=== PATIENT | male | born 1945 | race Caucasian/White ===

== ENCOUNTER 2021-11-01 11:30 | Inpatient (IN) | payer OTHER, MEDICARE ==
[~2021-11-01] VITALS: Ht 182.9 cm; Wt 140.7 kg
[2021-11-01 12:56] LABS: HEMOGLOBIN 14.6 gm/dl (14.0-17.5); RED BLOOD COUNT 5.09 M/UL (4.20-5.50)
[2021-11-01] MEDS ORDERED: ATORVASTATIN CA20 MG PO (14:35)
[2021-11-01] MEDS ORDERED: AMMONIUM LACTA225 GM TOP (14:35)
[2021-11-01] MEDS ORDERED: GABAPENTIN600 MG PO (14:36)
[2021-11-01] MEDS ORDERED: FLONASE ALLER15.8 ML (14:36)
[2021-11-01] MEDS ORDERED: FUROSEMIDE20 MG PO (14:36)
[2021-11-01] MEDS ORDERED: TRIAMCINOLONE A80 GM TOP (14:37)
[2021-11-01] MEDS ORDERED: VITAMIN D325 MC6 PO (14:38)
[2021-11-01] MEDS ORDERED: BETA SITOSTEROL PO (14:38)
[2021-11-02 02:12] LABS: HEMOGLOBIN 13.8 gm/dl (14.0-17.5); RED BLOOD COUNT 4.91 M/UL (4.20-5.50); WHITE BLOOD COUNT 11.5 K/UL (4.5-11.0)
[2021-11-03 03:49] LABS: HEMOGLOBIN 13.7 gm/dl (14.0-17.5); RED BLOOD COUNT 4.85 M/UL (4.20-5.50); WHITE BLOOD COUNT 12.2 K/UL (4.5-11.0)
[2021-11-03 15:39] LABS: BUN/CREATININE RATIO 16 (0-10)
[2021-11-04 02:27] LABS: HEMOGLOBIN 13.3 gm/dl (14.0-17.5); RED BLOOD COUNT 4.72 M/UL (4.20-5.50); WHITE BLOOD COUNT 11.4 K/UL (4.5-11.0)
[2021-11-05 04:54] LABS: HEMOGLOBIN 13.8 gm/dl (14.0-17.5); RED BLOOD COUNT 4.87 M/UL (4.20-5.50)
[2021-11-05 04:55] LABS: WHITE BLOOD COUNT 7.2 K/UL (4.5-11.0)
[2021-11-05 05:10] LABS: BUN/CREATININE RATIO 19 (0-10)
[2021-11-06 01:50] LABS: RED BLOOD COUNT 4.65 M/UL (4.20-5.50)
[2021-11-06 01:52] LABS: WHITE BLOOD COUNT 9.2 K/UL (4.5-11.0)
[2021-11-06 02:32] LABS: BUN/CREATININE RATIO 22 (0-10)
[2021-11-07 05:17] LABS: HEMOGLOBIN 12.8 gm/dl (14.0-17.5); RED BLOOD COUNT 4.52 M/UL (4.20-5.50); WHITE BLOOD COUNT 8.5 K/UL (4.5-11.0)
[2021-11-07 06:02] LABS: BUN/CREATININE RATIO 19 (0-10)
[2021-11-08 03:55] LABS: HEMOGLOBIN 12.7 gm/dl (14.0-17.5); RED BLOOD COUNT 4.51 M/UL (4.20-5.50); WHITE BLOOD COUNT 8.5 K/UL (4.5-11.0)
[2021-11-08 04:19] LABS: BUN/CREATININE RATIO 22 (0-10)
[2021-11-09 04:45] LABS: HEMOGLOBIN 12.9 gm/dl (14.0-17.5); RED BLOOD COUNT 4.73 M/UL (4.20-5.50)
[2021-11-09 05:08] LABS: BUN/CREATININE RATIO 24 (0-10)
[2021-11-10 02:36] LABS: HEMOGLOBIN 12.9 gm/dl (14.0-17.5); RED BLOOD COUNT 4.57 M/UL (4.20-5.50)
[2021-11-10 02:40] LABS: WHITE BLOOD COUNT 9.3 K/UL (4.5-11.0)
[2021-11-10 03:03] LABS: BUN/CREATININE RATIO 26 (0-10)
[2021-11-11 02:27] LABS: HEMOGLOBIN 13.3 gm/dl (14.0-17.5); RED BLOOD COUNT 4.72 M/UL (4.20-5.50); WHITE BLOOD COUNT 8.9 K/UL (4.5-11.0)
[2021-11-11 03:23] LABS: BUN/CREATININE RATIO 25 (0-10)
[2021-11-12 03:04] LABS: HEMOGLOBIN 13.1 gm/dl (14.0-17.5); RED BLOOD COUNT 4.62 M/UL (4.20-5.50); WHITE BLOOD COUNT 9.3 K/UL (4.5-11.0)
[2021-11-12 03:40] LABS: BUN/CREATININE RATIO 21 (0-10)
[2021-11-13 02:04] LABS: HEMOGLOBIN 12.9 gm/dl (14.0-17.5); RED BLOOD COUNT 4.58 M/UL (4.20-5.50); WHITE BLOOD COUNT 8.5 K/UL (4.5-11.0)
[2021-11-13 02:26] LABS: BUN/CREATININE RATIO 25 (0-10)
[2021-11-14 02:15] LABS: HEMOGLOBIN 12.8 gm/dl (14.0-17.5); RED BLOOD COUNT 4.48 M/UL (4.20-5.50); WHITE BLOOD COUNT 7.6 K/UL (4.5-11.0)
[2021-11-14 02:37] LABS: BUN/CREATININE RATIO 24 (0-10)
[2021-11-15 02:30] LABS: HEMOGLOBIN 12.9 gm/dl (14.0-17.5); RED BLOOD COUNT 4.65 M/UL (4.20-5.50); WHITE BLOOD COUNT 8.1 K/UL (4.5-11.0)
[2021-11-15 03:15] LABS: BUN/CREATININE RATIO 27 (0-10)
[2021-11-16 02:05] LABS: HEMOGLOBIN 13.1 gm/dl (14.0-17.5); RED BLOOD COUNT 4.6 M/UL (4.20-5.50); WHITE BLOOD COUNT 8.8 K/UL (4.5-11.0)
[2021-11-16 02:32] LABS: BUN/CREATININE RATIO 25 (0-10)
[2021-11-17 03:04] LABS: HEMOGLOBIN 12.7 gm/dl (14.0-17.5); RED BLOOD COUNT 4.51 M/UL (4.20-5.50); WHITE BLOOD COUNT 8.2 K/UL (4.5-11.0)
[2021-11-17 03:52] LABS: BUN/CREATININE RATIO 26 (0-10)
[2021-11-18 03:00] LABS: BUN/CREATININE RATIO 31 (0-10)
[2021-11-22] MEDS ORDERED: IPRAT-ALBUT 0.5-3 ML NEB ×2 (09:46→16:00)
[2021-11-22] MEDS ORDERED: FUROSEMIDE40 MG PO ×2 (09:46→16:00)
[2021-11-22] MEDS ORDERED: HUMIBID LA TAB600 MG PO ×2 (09:46→16:00)
[2021-11-22] MEDS ORDERED: ASPIRIN EC81 MG PO ×2 (09:46→16:00)
[2021-11-22] MEDS ORDERED: GABAPENTIN300 MG PO (09:46)
[2021-11-22] MEDS ORDERED: METOPROLOL SUCC25 MG PO ×2 (09:46→16:00)
[2021-11-22] MEDS ORDERED: PROTONIX 40 MG40 M1 PO ×2 (09:46→16:00)
[2021-11-22] MEDS ORDERED: SYMBICORT 160-1 INHA INH ×2 (09:46→16:00)
[2021-11-22] MEDS ORDERED: K-TAB ER20 MEQ PO (16:00)
== END 2021-11-22 13:36 | disposition home health service (06) | DRG 193 ==
LOC: ER1 11:30 → EDBD 11:30 → PROG CARE 14:02 → CDU 14:02 → CCU 14:02 → PROG CARE 20:00 → CCU 11-04 12:08 → PROG CARE 11-05 13:05 → CCU 11-06 13:17 → PROG CARE 11-09 14:13
PROVIDERS: Emergency Medicine; Internal Medicine; Internal Medicine Cardiovascular Disease; Internal Medicine Infectious Disease; Internal Medicine Pulmonary Disease; Physician Assistant; Physician Assistant Medical; ADMIT Internal Medicine
PROC: 5A0935A Assistance with Respiratory Ventilation, Less than 24 Consecutive Hours, High Flow/Velocity Cannula (ICD-10-PCS; 2021-11-01)
PROC: B24BZZZ Ultrasonography of Heart with Aorta (ICD-10-PCS; principal; 2021-11-03)
PROC: 5A09357 Assistance with Respiratory Ventilation, Less than 24 Consecutive Hours, Continuous Positive Airway Pressure (ICD-10-PCS; 2021-11-03)
PROC: 5A09357 Assistance with Respiratory Ventilation, Less than 24 Consecutive Hours, Continuous Positive Airway Pressure (ICD-10-PCS; 2021-11-04)
PROC: 5A0935A Assistance with Respiratory Ventilation, Less than 24 Consecutive Hours, High Flow/Velocity Cannula (ICD-10-PCS; 2021-11-04)
PROC: 5A0935A Assistance with Respiratory Ventilation, Less than 24 Consecutive Hours, High Flow/Velocity Cannula (ICD-10-PCS; 2021-11-05)
PROC: 5A09357 Assistance with Respiratory Ventilation, Less than 24 Consecutive Hours, Continuous Positive Airway Pressure (ICD-10-PCS; 2021-11-05)
PROC: 5A0935A Assistance with Respiratory Ventilation, Less than 24 Consecutive Hours, High Flow/Velocity Cannula (ICD-10-PCS; 2021-11-06)
PROC: 5A09357 Assistance with Respiratory Ventilation, Less than 24 Consecutive Hours, Continuous Positive Airway Pressure (ICD-10-PCS; 2021-11-06)
PROC: 5A09357 Assistance with Respiratory Ventilation, Less than 24 Consecutive Hours, Continuous Positive Airway Pressure (ICD-10-PCS; 2021-11-08)
PROC: 5A09357 Assistance with Respiratory Ventilation, Less than 24 Consecutive Hours, Continuous Positive Airway Pressure (ICD-10-PCS; 2021-11-09)
PROC: 5A09357 Assistance with Respiratory Ventilation, Less than 24 Consecutive Hours, Continuous Positive Airway Pressure (ICD-10-PCS; 2021-11-10)
PROC: 5A09357 Assistance with Respiratory Ventilation, Less than 24 Consecutive Hours, Continuous Positive Airway Pressure (ICD-10-PCS; 2021-11-11)
PROC: 5A09357 Assistance with Respiratory Ventilation, Less than 24 Consecutive Hours, Continuous Positive Airway Pressure (ICD-10-PCS; 2021-11-13)
PROC: 5A0935A Assistance with Respiratory Ventilation, Less than 24 Consecutive Hours, High Flow/Velocity Cannula (ICD-10-PCS; 2021-11-13)
PROC: 5A0935A Assistance with Respiratory Ventilation, Less than 24 Consecutive Hours, High Flow/Velocity Cannula (ICD-10-PCS; 2021-11-14)
PROC: 5A09357 Assistance with Respiratory Ventilation, Less than 24 Consecutive Hours, Continuous Positive Airway Pressure (ICD-10-PCS; 2021-11-14)
PROC: 0B9G8ZX Drainage of Left Upper Lung Lobe, Via Natural or Artificial Opening Endoscopic, Diagnostic (ICD-10-PCS; 2021-11-15)
PROC: 5A09357 Assistance with Respiratory Ventilation, Less than 24 Consecutive Hours, Continuous Positive Airway Pressure (ICD-10-PCS; 2021-11-15)
PROC: 5A0935A Assistance with Respiratory Ventilation, Less than 24 Consecutive Hours, High Flow/Velocity Cannula (ICD-10-PCS; 2021-11-15)
PROC: 5A0935A Assistance with Respiratory Ventilation, Less than 24 Consecutive Hours, High Flow/Velocity Cannula (ICD-10-PCS; 2021-11-16)
PROC: 5A09357 Assistance with Respiratory Ventilation, Less than 24 Consecutive Hours, Continuous Positive Airway Pressure (ICD-10-PCS; 2021-11-16)
PROC: 5A0935A Assistance with Respiratory Ventilation, Less than 24 Consecutive Hours, High Flow/Velocity Cannula (ICD-10-PCS; 2021-11-17)
PROC: 5A09357 Assistance with Respiratory Ventilation, Less than 24 Consecutive Hours, Continuous Positive Airway Pressure (ICD-10-PCS; 2021-11-17)
PROC: 5A0935A Assistance with Respiratory Ventilation, Less than 24 Consecutive Hours, High Flow/Velocity Cannula (ICD-10-PCS; 2021-11-18)
PROC: 5A09357 Assistance with Respiratory Ventilation, Less than 24 Consecutive Hours, Continuous Positive Airway Pressure (ICD-10-PCS; 2021-11-19)
PROC: 5A0935A Assistance with Respiratory Ventilation, Less than 24 Consecutive Hours, High Flow/Velocity Cannula (ICD-10-PCS; 2021-11-19)
PROC: 5A09357 Assistance with Respiratory Ventilation, Less than 24 Consecutive Hours, Continuous Positive Airway Pressure (ICD-10-PCS; 2021-11-20)
PROC: 5A0935A Assistance with Respiratory Ventilation, Less than 24 Consecutive Hours, High Flow/Velocity Cannula (ICD-10-PCS; 2021-11-20)
PROC: 5A09357 Assistance with Respiratory Ventilation, Less than 24 Consecutive Hours, Continuous Positive Airway Pressure (ICD-10-PCS; 2021-11-21)
PROC: 5A0935A Assistance with Respiratory Ventilation, Less than 24 Consecutive Hours, High Flow/Velocity Cannula (ICD-10-PCS; 2021-11-21)
PROC: 5A09357 Assistance with Respiratory Ventilation, Less than 24 Consecutive Hours, Continuous Positive Airway Pressure (ICD-10-PCS; 2021-11-22)
DX: J18.9 Pneumonia, unspecified organism (principal); I50.33 Acute on chronic diastolic (congestive) heart failure; J96.21 Acute and chronic respiratory failure with hypoxia; J96.22 Acute and chronic respiratory failure with hypercapnia; E66.2 Morbid (severe) obesity with alveolar hypoventilation; J98.11 Atelectasis; Z68.42 Body mass index [BMI] 45.0-49.9, adult; I13.0 Hypertensive heart and chronic kidney disease with heart failure and stage 1 through stage 4 chronic kidney disease, or unspecified chronic kidney disease; E87.2 Acidosis; N17.9 Acute kidney failure, unspecified; E87.3 Alkalosis; J98.19 Other pulmonary collapse; I87.2 Venous insufficiency (chronic) (peripheral); E78.5 Hyperlipidemia, unspecified; Z20.822 Contact with and (suspected) exposure to COVID-19; N18.30 Chronic kidney disease, stage 3 unspecified; J98.09 Other diseases of bronchus, not elsewhere classified; L89.312 Pressure ulcer of right buttock, stage 2; Z98.890 Other specified postprocedural states; Z82.49 Family history of ischemic heart disease and other diseases of the circulatory system; Z83.3 Family history of diabetes mellitus; Z87.891 Personal history of nicotine dependence; Z79.82 Long term (current) use of aspirin
CPT/HCPCS: ECHO; 0240U; 36415; 36600; 71045; 71250; 80048; 80053; 80202; 81001; 82550; 82553; 82803; 83605; 83735; 83880; 84100; 84484; 85025; 85027; 85610; 87040; 87070; 87081; 87086; 87205; 93005; 93306; 93970; 94640; 94660; 94668; 94760; 96374; 96375; 97110; 97110-GP-CQ; 97116-GP-CQ; 97162; 97164; 97166; 97168; 97530; 97530-GP-CQ; 97535; 99285; A6212; J0360; J0692; J0696; J1120; J1650; J1940; J2060; J2250; J2270; J2704; J3370; J3486; J7040; J7050; J7070